=== PATIENT | male | born 1970 | race Caucasian/White ===

== ENCOUNTER → 2016-10-30 | Outpatient (CLI) | payer BC ==
--- NOTE | 2016-10-30 10:41 | DX ---
AP Supine Abdomen, Two Views 10:00 a.m. Clinical History: 46-year-old male with a history of nephrolithiasis, assessing for kidney stones. Comparison Studies: Abdominal radiography, dated April 26, 2016 and March 31, 2016. Findings: Air and fecal material obscure portions of the renal shadows. On the previous exam in April, there was some lower pole left nephrolithiasis observed, which is equivocally present today. On the study in March, there was some mid pole right nephrolithiasis suspected, which cannot be confirmed. Un enhanced CT imaging would be more sensitive. There are no abnormal calcific radiodensities projected over the pelvis, again with the caveat that fecal material within the rectosigmoid obscures portions of the urinary bladder. The osseous structures are age-appropriate. The bowel gas pattern is normal. There is no apparent organomegaly. The osseous structures are normal. Impression: 1. Equivocal lower pole left nephrolithiasis. 2. Mild constipation.
== END ==
LOC: FIMAGING 09:59 → EDSTATUS 11:39
PROVIDERS: ATTEND Specialist
DX: N20.0 Calculus of kidney (principal)

== ENCOUNTER → 2017-11-30 | Outpatient (CLI) | payer BC | LOC: FIMAGING 09:20 | PROVIDERS: ATTEND Specialist | DX: R93.5 Abnormal findings on diagnostic imaging of other abdominal regions, including retroperitoneum (principal) ==

== ENCOUNTER → 2018-12-23 | Outpatient (CLI) | payer BC | LOC: FIMAGING 09:07 | PROVIDERS: ATTEND Specialist | DX: R31.29 Other microscopic hematuria (principal); Z87.442 Personal history of urinary calculi ==